=== PATIENT | male | born 1980 | race Caucasian/White ===

== ENCOUNTER 2017-05-14 03:15 | Emergency (ER) | payer BC ==
[2017-05-14] MEDS ORDERED: Ketorolac 60 MG/2 ML SDV ONE (03:26)
[2017-05-14] MEDS ORDERED: Ketorolac 60 MG/2 ML SDV IM ONE (03:27)
[2017-05-14 03:43] VITALS: BP 130/77
--- NOTE | 2017-05-14 04:14 | EDM.PDOC ---
ED HPI GENERAL MEDICAL PROBLEM - General Chief Complaint: General Stated Complaint: FOOT AND ELBOW PAIN Time Seen by Provider: 05/14/17 03:30 Source of Information: Reports: Patient, Family History Limitations: Reports: No Limitations - History of Present Illness INITIAL COMMENTS - FREE TEXT/NARRATIVE: 37 y.o.w.m came to the ed with his daughter due to pain at his left elbow, which is "another gout attack" at his left elbow. Pt stated he has gout attacks multiple time, not only at is left elbow but on other joints as well. Pt was on prophylactc gout meds, but ran out of it. He did not change his diet and does not feel dehydrated. He denies trauma. No N/V/D or any other acute medical issues. BP 130 /77 pulse 77 RR 20 Temp 36.6 Pulse ox 98% on RA. Onset: Today Onset Date: 05/13/17 Onset Time: 20:00 Duration: Hour(s):, Intermittent Location: Reports: Upper Extremity, Left Quality: Reports: Ache, Dull, Pressure, Same as Previous Episode Severity: Moderate Improves with: Reports: Medication, Rest Worsens with: Reports: Movement Context: Reports: Other (H/O Gout) Associated Symptoms: Reports: No Other Symptoms - Related Data Allergies Allergy/AdvReac Type Severity Reaction Status Date / Time No Known Allergies Allergy Verified 05/14/17 03:36 Home Meds: Home Meds Colchicine 0.6 mg PO DAILY PRN #10 capsule 05/14/17 [Rx] Past Medical History - Past Health History Medical/Surgical History: Denies Medical/Surgical History Cardiovascular History: Reports: Other (See Below) Other Cardiovascular History: chest pain in past negative findings Musculoskeletal History: Reports: Gout Neurological History: Reports: Migraines Psychiatric History: Reports: ADD - Past Surgical History Musculoskeletal Surgical History: Reports: Other (See Below) Other Musculoskeletal Surgeries/Procedures:: Right ankle surgery. Social & Family History - Family History Family Medical History: Noncontributory - Tobacco Use Smoking Status *Q: Former Smoker Years of Tobacco use: 20 Packs/Tins Daily: 1 Used Tobacco, but Quit: No Second Hand Smoke Exposure: No - Alcohol Use Days Per Week of Alcohol Use: 7 Number of Drinks Per Day: 2 Total Drinks Per Week: 14 - Recreational Drug Use Recreational Drug Use: No Recreational Drug Type: Reports: Methamphetamine Recreational Drug Use Frequency: Patient Refuses To Answer ED ROS GENERAL - Review of Systems Review Of Systems: See Below Constitutional: Reports: No Symptoms HEENT: Reports: No Symptoms Respiratory: Reports: No Symptoms Cardiovascular: Reports: No Symptoms Endocrine: Reports: No Symptoms GI/Abdominal: Reports: No Symptoms : Reports: No Symptoms Musculoskeletal: Reports: Muscle Pain (left elbow) Skin: Reports: No Symptoms Neurological: Reports: No Symptoms Psychiatric: Reports: No Symptoms Hematologic/Lymphatic: Reports: No Symptoms Immunologic: Reports: No Symptoms ED EXAM, GENERAL - Physical Exam Exam: See Below Exam Limited By: No Limitations General Appearance: Alert, WD/WN, Mild Distress Eye Exam: Bilateral Eye: Normal Inspection Ears: Normal External Exam Ear Exam: Bilateral Ear: Auricle Normal Nose: Normal Inspection, Normal Mucosa Throat/Mouth: Normal Inspection, Normal Lips Head: Atraumatic, Normocephalic Neck: Normal Inspection, Supple Respiratory/Chest: No Respiratory Distress Cardiovascular: Normal Peripheral Pulses, Regular Rate, Rhythm Peripheral Pulses: 1+: Radial (L) GI/Abdominal: Normal Bowel Sounds (Male) Exam: Deferred Rectal (Males) Exam: Deferred Back Exam: Normal Inspection, Full Range of Motion Extremities: Normal Range of Motion, Redness (left elbow) Neurological: Alert, Oriented, CN II-XII Intact, Normal Cognition Psychiatric: Normal Affect, Normal Mood Skin Exam: Warm, Dry, Intact, Normal Color Lymphatic: No Adenopathy Course - Vital Signs Text/Narrative:: 37 y.o.w.m came to the ed with his daughter due to pain at his left elbow, which is "another gout attack" at his left elbow. Pt stated he has gout attacks multiple time, not only at is left elbow but on other joints as well. Pt was on prophylactc gout meds, but ran out of it. He did not change his diet and does not feel dehydrated. He denies trauma. No N/V/D or any other acute medical issues. BP 130 /77 pulse 77 RR 20 Temp 36.6 Pulse ox 98% on RA. PE: Acute gout pain left elbow Impression: Acute gout pain left elbow Tx: Toradol Reexam: Improved Pln: D/C with instructions Last Recorded V/S: Last Vital Signs Temp 36.3 C 05/14/17 03:30 Pulse 98 05/14/17 03:30 Resp 16 05/14/17 03:30 BP 130/77 05/14/17 03:30 Pulse Ox 97 05/14/17 03:30 - Orders/Labs/Meds Meds: Medications Discontinued Medications Generic Name Dose Route Start Last Admin Trade Name Letty PRN Reason Stop Dose Admin Ketorolac Tromethamine Confirm 05/14/17 03:26 05/14/17 03:33 Toradol Administered 05/14/17 03:27 Not Given Dose 60 mg .ROUTE .STK-MED ONE Ketorolac Tromethamine 60 mg 05/14/17 03:27 05/14/17 03:27 Toradol IM 05/14/17 03:28 60 mg ONETIME ONE Administration Departure - Departure Time of Disposition: 04:07 Disposition: Home, Self-Care 01 Condition: Good Clinical Impression: Gout attack Qualifiers: Gout site: elbow Gout etiology: unspecified cause Laterality: left Qualified Code(s): M10.9 - Gout, unspecified - Discharge Information Prescriptions: Colchicine 0.6 mg PO DAILY PRN #10 capsule PRN Reason: gout prophylaxis Referrals: Osito Fabian MD [Primary Care Provider] - Forms: ED Department Discharge Additional Instructions: Please take colchicine for gout prophylaxis as recommended, please f/u, come back if your symptoms get worse acutely
== END 2017-05-14 04:21 | disposition home or self-care (01) ==
LOC: FB.ED 03:15
DX: M10.9 Gout, unspecified (principal); Z79.899 Other long term (current) drug therapy; Z87.891 Personal history of nicotine dependence
CPT/HCPCS: 96372; 99282; J1885

== ENCOUNTER 2017-05-21 17:07 | Emergency (ER) | payer BC, MEDICAID ==
--- NOTE | 2017-05-21 17:46 | EDM.PDOC ---
ED HPI GENERAL MEDICAL PROBLEM - General Chief Complaint: Back Pain or Injury Stated Complaint: PAIN WHEN BREATHING Time Seen by Provider: 05/21/17 17:30 Source of Information: Reports: Patient, Old Records History Limitations: Reports: No Limitations - History of Present Illness INITIAL COMMENTS - FREE TEXT/NARRATIVE: Uri returns to [facility] ED with a reported 2-3 day hx of L anterior chest pains parasternal at about T4 level. Pain is sharp at times, nonradiating, and appears to be aggravated with his nonproductive cough. There are no fever, chills, sweats, SOB, wheezing, rash or anginal hx. This am, he is reporting co morbid pain in the L posterior chest at about T6 that has similar characteristics, and seems to be aggravated with movement. He has tried NSAIDs without improvement. Left Middle Back Pain Score (Numeric/FACES): 8 - Related Data Allergies Allergy/AdvReac Type Severity Reaction Status Date / Time No Known Allergies Allergy Verified 05/21/17 17:56 Home Meds: Home Meds Doxycycline Hyclate 100 mg PO BID #20 tablet. 05/21/17 [Rx] Past Medical History - Past Health History Medical/Surgical History: Denies Medical/Surgical History Cardiovascular History: Reports: Other (See Below) Other Cardiovascular History: chest pain in past negative findings Musculoskeletal History: Reports: Gout Neurological History: Reports: Migraines Psychiatric History: Reports: ADD - Past Surgical History Musculoskeletal Surgical History: Reports: Other (See Below) Other Musculoskeletal Surgeries/Procedures:: Right ankle surgery. Social & Family History - Family History Family Medical History: Noncontributory - Tobacco Use Smoking Status *Q: Former Smoker Years of Tobacco use: 20 Packs/Tins Daily: 1 Used Tobacco, but Quit: No Second Hand Smoke Exposure: No - Alcohol Use Days Per Week of Alcohol Use: 7 Number of Drinks Per Day: 2 Total Drinks Per Week: 14 - Recreational Drug Use Recreational Drug Use: No Recreational Drug Type: Reports: Methamphetamine Recreational Drug Use Frequency: Patient Refuses To Answer ED ROS GENERAL - Review of Systems Review Of Systems: See Below Constitutional: Reports: No Symptoms HEENT: Reports: No Symptoms Respiratory: Reports: Cough, Other (L anterior and posterior chest pain) Cardiovascular: Reports: Chest Pain Endocrine: Reports: No Symptoms GI/Abdominal: Reports: No Symptoms : Reports: No Symptoms Musculoskeletal: Reports: Arm Pain (L elbow pain reported May 14, improved), Back Pain (chronic low back pain) Skin: Reports: No Symptoms Neurological: Reports: No Symptoms Psychiatric: Reports: Anxiety Hematologic/Lymphatic: Reports: No Symptoms Immunologic: Reports: No Symptoms ED EXAM, GENERAL - Physical Exam Exam: See Below Exam Limited By: No Limitations General Appearance: Alert, WD/WN, No Apparent Distress, Anxious, Obese Eye Exam: Bilateral Eye: EOMI, Normal Inspection, PERRL Ears: Normal External Exam, Normal TMs Nose: Normal Inspection Throat/Mouth: Normal Inspection, Normal Lips, Normal Gums, Normal Oropharynx, Normal Voice Head: Normocephalic Neck: Normal Inspection, Supple, Non-Tender, Full Range of Motion Respiratory/Chest: No Respiratory Distress, Normal Breath Sounds, No Accessory Muscle Use, Other (mild chest tenderness anterior T4, posterior T6 on the Left) Cardiovascular: Normal Peripheral Pulses, Regular Rate, Rhythm, No Murmur, No Rub Back Exam: Normal Inspection Extremities: Normal Inspection Neurological: Alert, Oriented, CN II-XII Intact, Normal Cognition, Normal Gait, No Motor/Sensory Deficits Psychiatric: Normal Affect, Anxious Skin Exam: Warm, Dry, Intact, Normal Color Lymphatic: No Adenopathy Course - Vital Signs Text/Narrative:: The chest x ray noted a prominent fat pad in the L lower chest. The chest CT w contrast noted infiltrates in the R upper and middle lobes, and a rounded density in the R lower chest x ray that may also be an infiltrate. Perihilar adenopathy also detected. A CAP is suspected. He was administered Ativan 1 mg po for anxiety before the scans, and Doxycycline 100 mg po before discharge. Last Recorded V/S: Last Vital Signs Temp 36.6 C 05/21/17 17:07 Pulse 102 H 05/21/17 17:07 Resp 18 05/21/17 17:07 BP 119/97 H 05/21/17 17:07 Pulse Ox 99 05/21/17 17:07 - Orders/Labs/Meds Orders: Active Orders 24 hr Category Date Time Status Chest 2V [CR] Stat Exams 05/21/17 18:27 Taken Chest w Cont [CT] Stat Exams 05/21/17 17:52 Taken Sodium Chloride 0.9% [Saline Flush] Med 05/21/17 17:56 Active 10 ml FLUSH ASDIRECTED PRN Peripheral IV Insertion Adult [OM.PC] Routine Oth 05/21/17 17:56 Ordered Medication Orders Sodium Chloride (Saline Flush) 10 ml FLUSH ASDIRECTED PRN PRN Reason: Keep Vein Open Last Admin: 05/21/17 18:07 Dose: 10 ml Labs: Laboratory Tests 05/21/17 05/21/17 05/21/17 Range/Units 18:00 18:00 18:00 WBC 12.0 (4.5-12.0) X10-3/uL RBC 5.38 (4.30-5.75) x10(6)uL Hgb 15.7 H (11.5-15.5) g/dL Hct 47.4 (30.0-51.3) % MCV 88.2 (80-96) fL MCH 29.2 (27.7-33.6) pg MCHC 33.2 (32.2-35.4) g/dL RDW 12.2 (11.5-15.5) % Plt Count 429 H (125-369) X10(3)uL MPV 7.9 (7.4-10.4) fL Neut % (Auto) 65.1 (46-82) % Lymph % (Auto) 27.1 (13-37) % Harper % (Auto) 5.0 (4-12) % Eos % (Auto) 2 (1.0-5.0) % Baso % (Auto) 1 (0-2) % Neut # (Auto) 7.7 (1.6-8.3) # Lymph # (Auto) 3.3 (0.6-5.0) # Harper # (Auto) 0.6 (0.0-1.3) # Eos # (Auto) 0.3 (0.0-0.8) # Baso # (Auto) 0.1 (0.0-0.2) # D-Dimer, Quantitative 101 (100-400) ng/mL Sodium 141 (135-145) mmol/L Potassium 3.9 (3.5-5.3) mmol/L Chloride 102 (100-110) mmol/L Carbon Dioxide 24 (21-32) mmol/L BUN 13 (7-18) mg/dL Creatinine 1.4 H (0.70-1.30) mg/dL Est Cr Clr Drug Dosing 78.52 mL/min Estimated GFR (MDRD) 57 L (>60) BUN/Creatinine Ratio 9.3 (9-20) Glucose 105 (80-116) mg/dL Calcium 8.8 (8.6-10.2) mg/dL Total Bilirubin 0.3 (0.1-1.3) mg/dL AST 28 H (5-25) IU/L ALT 47 H (12-36) U/L Alkaline Phosphatase 81 (56-112) IU/L Total Protein 8.4 H (6.0-8.0) g/dL Albumin 3.7 (3.5-5.2) g/dL Globulin 4.7 g/dL Albumin/Globulin Ratio 0.8 Meds: Medications Generic Name Dose Route Start Last Admin Trade Name Freq PRN Reason Stop Dose Admin Sodium Chloride 10 ml 05/21/17 17:56 05/21/17 18:07 Saline Flush FLUSH 10 ml ASDIRECTED PRN Administration Keep Vein Open Discontinued Medications Generic Name Dose Route Start Last Admin Trade Name Freq PRN Reason Stop Dose Admin Iopamidol 100 ml 05/21/17 17:59 05/21/17 18:24 Isovue-370 (76%) IV 05/21/17 18:00 98 ml ONETIME ONE Administration Lorazepam 1 mg 05/21/17 17:55 05/21/17 18:01 Ativan PO 05/21/17 17:56 1 mg ONETIME ONE Administration Departure - Departure Time of Disposition: 19:20 Disposition: Home, Self-Care 01 Condition: Fair Clinical Impression: Atypical chest pain Community acquired pneumonia Qualifiers: Laterality: right Lung location: middle lobe of lung Qualified Code(s): J18.1 - Lobar pneumonia, unspecified organism - Discharge Information Referrals: Osito Fabian MD [Primary Care Provider] - Forms: ED Department Discharge - Problem List & Annotations (1) Atypical chest pain SNOMED Code(s): 738674622 Code(s): R07.89 - OTHER CHEST PAIN Status: Acute Current Visit: Yes Annotation/Comment:: I suggested NSAIDs for pain such as Ibuprofen or Alleve. (2) Community acquired pneumonia SNOMED Code(s): 761654831 Code(s): J18.9 - PNEUMONIA, UNSPECIFIED ORGANISM Status: Acute Current Visit: Yes Annotation/Comment:: I dispensed Doxycycline 100 mg cap bid for 10 days, hydration, and rest. Follow up with PCP. Qualifiers: Laterality: right Lung location: middle lobe of lung Qualified Code(s): J18.1 - Lobar pneumonia, unspecified organism - Problem List Review Problem List Initiated/Reviewed/Updated: Yes - My Orders Last 24 Hours: My Active Orders 05/21/17 17:52 Chest w Cont [CT] Stat 05/21/17 17:56 Sodium Chloride 0.9% [Saline Flush] 10 ml FLUSH ASDIRECTED PRN Peripheral IV Insertion Adult [OM.PC] Routine 05/21/17 18:27 Chest 2V [CR] Stat - Assessment/Plan Last 24 Hours: My Active Orders 05/21/17 17:52 Chest w Cont [CT] Stat 05/21/17 17:56 Sodium Chloride 0.9% [Saline Flush] 10 ml FLUSH ASDIRECTED PRN Peripheral IV Insertion Adult [OM.PC] Routine 05/21/17 18:27 Chest 2V [CR] Stat Plan: Follow up with PCP in 10 days.
[2017-05-21] MEDS: LORazepam 1 MG Tab PO ONE (18:01)
[2017-05-21] MEDS: Sodium Chloride 0.9% 10 ML Syringe FLUSH PRN (18:07)
[2017-05-21] MEDS: Iopamidol 755 Mg/ML 100 ML Bottle IV ONE (18:24)
[2017-05-21] MEDS: Doxycycline 100 MG Tab PO ONE (19:27)
[2017-05-21 19:33] VITALS: BP 120/88
--- NOTE | 2017-05-22 09:23 | CT ---
INDICATION: Defect left lung base, atypical chest pain. CT CHEST WITH CONTRAST: Spiral 2.5-mm axial sections were obtained through the chest with sagittal and coronal reconstructions and 100 mL Isovue-370 at 2 mL per second. No comparisons were available except for chest x-rays. Total Exam DLP = 529.40 mGy-cm. In the right lower lobe, on axial images #64 through #71, there is an area of infiltrate and within that area of minimal infiltrate there is a rounded/oval shaped nodular density with irregular margins that has a Hounsfield unit measurement of 40 and measured 12.1 mm. This may represent a small abscess or even a small neoplasm. The possibility of pneumonia with an abscess is most likely in this age group. However, neoplasia certainly cannot be excluded. Follow-up to clearing is recommended, depending upon clinical correlation. A set of CT images without IV contrast to evaluate the uptake of contrast may be helpful. There is another area of minimal infiltrate suggested on axial images #30 through #35 in the right upper lobe. This may represent another area of pneumonia, but should be correlated clinically. No old CTs are available for comparison. Mediastinal lymphadenopathy is noted with a lymph node at the precarinal area measuring 19 mm. Subcarinal lymphadenopathy is also noted. The heart did not appear enlarged. No pericardial effusion was seen. Upper abdomen was grossly unremarkable. IMPRESSION: Areas of infiltrate noted in the right upper and lower lobes may represent pneumonia, possibly with an abscess complicating pneumonia in the lower lobe. The possibility of a neoplastic process cannot be entirely excluded. Follow-up to clearing is therefore recommended. MTDD
--- NOTE | 2017-05-22 09:28 | CR ---
INDICATION: Left anterior and posterior chest pain. CHEST: PA and lateral views of the chest were obtained 05/21/2017 and compared with 04/25/2015, and revealed the heart to remain normal in size and shape with an epicardial fat pad that is prominent on the left, as previously, and confirmed by CT of the same date. A definite active infiltrate or effusion was not identified. However, markings are somewhat heavy at the right medial lung base, making it difficult to exclude patchy bronchopneumonia in that area. IMPRESSION: No definite acute process, but cannot exclude pneumonia at the right lung base. Report was called to Dr. Ackerman at 1905 hours, 05/21/2017. [facility]
== END 2017-05-21 19:30 | disposition home or self-care (01) ==
LOC: FB.ED 17:07
DX: J18.9 Pneumonia, unspecified organism (principal); Z87.891 Personal history of nicotine dependence
CPT/HCPCS: 36415; 71046; 71260; 80053; 85025; 85379; 99285; A9270; J7050; Q9967

== ENCOUNTER 2018-10-31 10:35 | Emergency (ER) | payer BC, MEDICAID ==
[2018-10-31] MEDS: Aspirin 81 MG Tab.Chew PO ONE (10:45)
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
[2018-10-31] MEDS: Sodium Chloride 0.9% 10 ML Syringe FLUSH PRN (11:19)
[2018-10-31] MEDS: Sodium Chloride 0.9% 1,000 ML IV ONE (11:19)
[2018-10-31] MEDS: Ketorolac 30 MG/ML SDV IVPUSH ONE (11:19)
--- NOTE | 2018-10-31 15:26 | CR ---
INDICATION: Chest pain. CHEST: PA and lateral views of the chest were obtained with full inspiration, 10/31/18 at 1327 hours, and compared with same date from 1106 hours, as well as 05/21/17. Compared with 05/21/17, there is no significant interval change or evidence for an acute process. An unusual appearing epicardial fat pad is again noted on the left. Overlying snaps are noted. Heart, mediastinum, and bony thorax were unremarkable. An active infiltrate or effusion was not identified. IMPRESSION: No active disease, stable chest compared with 05/21/17. MTDD
[2018-10-31 16:08] VITALS: BP 129/77
== END 2018-10-31 14:24 | disposition home or self-care (01) ==
LOC: FB.ED 10:35
DX: M94.0 Chondrocostal junction syndrome [Tietze] (principal); I10 Essential (primary) hypertension; I25.2 Old myocardial infarction; E66.9 Obesity, unspecified; F17.210 Nicotine dependence, cigarettes, uncomplicated; Z68.32 Body mass index [BMI] 32.0-32.9, adult
CPT/HCPCS: 36415; 71045; 71046; 80053; 84484; 85025; 85379; 85610; 85730; 93005; 99285; A9270; J1885; J7030

== ENCOUNTER 2022-04-06 22:00 | Emergency (ER) | payer MEDICAID ==
[2022-04-06 22:19] VITALS: BP 138/96; PULSE 109
[2022-04-06] MEDS ORDERED: cefTRIAXone 250 MG Vial IM ONE (22:33)
[2022-04-06] MEDS ORDERED: Sulfamethoxazole/Trimethoprim 800-160 MG Tab PO ONE (22:33)
[2022-04-06] MEDS ORDERED: Azithromycin 250 MG Tab PO ONE (22:33)
[2022-04-10 11:09] LABS: CHLAMYDIA TRACHOMATIS, NAA Negative (Negative); NEISSERIA GONORRHOEAE, NAA Positive (Negative)
== END 2022-04-06 23:09 | disposition home or self-care (01) ==
LOC: FB.ED 22:00
DX: N39.0 Urinary tract infection, site not specified (principal); R31.9 Hematuria, unspecified; A64 Unspecified sexually transmitted disease; F17.210 Nicotine dependence, cigarettes, uncomplicated; E66.9 Obesity, unspecified; Z68.32 Body mass index [BMI] 32.0-32.9, adult
CPT/HCPCS: 81001; 87086; 87491; 87591; 96372; 99283; A9270-GY; J0696

== ENCOUNTER 2022-08-14 01:29 | Emergency (ER) | payer MEDICAID ==
[2022-08-14 01:53] LABS: BLOOD UREA NITROGEN,BUN 28 mg/dL (7-18); CALCIUM 8.9 mg/dL (8.6-10.2); CARBON DIOXIDE,CO2 28 mmol/L (21-32); CHLORIDE,CL 103 mmol/L (100-110); CREATININE 1.4 mg/dL (0.70-1.30); ESTIMATED GFR 64 mL/min (>60); GLUCOSE RANDOM 114 mg/dL (80-116); POTASSIUM,K 3.6 mmol/L (3.5-5.3); SODIUM,NA 139 mmol/L (135-145)
[2022-08-14 01:58] LABS: BASOPHILS PERCENT AUTO 0.3 % (0.3-3.8); EOSINOPHILS ABSOLUTE AUTO 0.2 x10-3/uL (0.0-0.6); EOSINOPHILS PERCENT AUTO 1.4 % (0.1-6.8); HEMATOCRIT 42.7 % (38.3-50.1); HEMOGLOBIN 14.7 g/dL (12.9-17.7); LYMPHOCYTES ABSOLUTE AUTO 3.5 x10-3/uL (0.5-4.5); LYMPHOCYTES PERCENT AUTO 29.6 % (15.8-45.3); MEAN CORPUSCULAR HEMOGLOBIN 29.7 pg (27.0-33.3); MEAN CORPUSCULAR HGB CONC 34.4 g/dL (28.7-35.3); MEAN CORPUSCULAR VOLUME 86.4 fL (80.8-98.7); MONOCYTES PERCENT AUTO 8.1 % (5.5-15.2); NEUTROPHILS ABSOLUTE AUTO 7.2 x10-3/uL (1.7-6.9); NEUTROPHILS PERCENT AUTO 60.6 % (40.3-71.8); PLATELET COUNT,PLT 322 x10(3)uL (117-477); RED BLOOD CELL COUNT 4.95 x10(6)uL (3.90-5.90); RED CELL DISTRIBUTION WIDTH 13.3 % (12.4-15.0)
[2022-08-14 01:59] LABS: ALANINE AMINOTRANSFERASE,ALT 41 U/L (12-36); ALKALINE PHOSPHATASE 103 IU/L (56-112); ASPARTATE AMNIOTRANSFERASE,AST 35 IU/L (5-25); BILIRUBIN TOTAL 0.5 mg/dL (0.1-1.3)
[2022-08-14 02:20] VITALS: BP 143/94; PULSE 103
== END 2022-08-14 02:30 | disposition home or self-care (01) ==
LOC: FB.ED 01:29
DX: R07.89 Other chest pain (principal); I10 Essential (primary) hypertension; I25.2 Old myocardial infarction; M10.9 Gout, unspecified; E66.9 Obesity, unspecified; Z68.33 Body mass index [BMI] 33.0-33.9, adult
CPT/HCPCS: 36415; 71045; 80053; 84484; 85025; 85379; 93005; 99285